=== PATIENT | female | born 2000 | race Caucasian/White ===

== ENCOUNTER 2025-05-10 08:08 | Outpatient (CLI) | payer BC | END 2025-05-10 08:09 | disposition home or self-care (01) | LOC: CSHULT 08:08 | PROVIDERS: ATTEND Family Medicine | DX: Z30.431 Encounter for routine checking of intrauterine contraceptive device (principal); N83.201 Unspecified ovarian cyst, right side; N83.202 Unspecified ovarian cyst, left side | CPT/HCPCS: 76856 ==

== ENCOUNTER 2025-07-23 15:36 | Outpatient (CLI) | payer BC | END 2025-07-23 15:37 | disposition home or self-care (01) | LOC: CSHULT 15:36 | PROVIDERS: ATTEND Family Medicine | DX: E04.1 Nontoxic single thyroid nodule (principal) | CPT/HCPCS: 76536 ==